=== PATIENT | female | born 1990 | race Two or more races ===

== ENCOUNTER 2024-06-14 13:43 | Emergency (ER) | payer MEDICAID, SELFPAY ==
[2024-06-14 14:05] VITALS: BP 118/81; PULSE 83; RESP 16; TEMP 37.1; O2SAT 98; BMI 34.5
--- NOTE | 2024-06-14 14:12 | EDNOTE_ITS ---
ED Skin Abcess FB-RME/HPI General Chief complaint: Skin/Abscess/Foreign Body Stated complaint: c section 05-30-24. wound opened up, foul leaking Time Seen by Provider: 06/14/24 13:48 Arrival date/time: 06/14/24 13:43 34-year-old female presents emergency department today stating she had a C- section 05/30 and quit [facility] patient reports foul odor from the incision site Limitations: no limitations Related Data Previous Rx's ?Medication ?Instructions ?Recorded Sulfamethoxazole/Trimethoprim DS * 1 tab PO BID Infection #20 tabs 03/01/15 (BACTRIM DS *) clindamycin HCl 300 mg capsule 300 mg PO TID 7 days #21 caps 06/14/24 Allergies Allergy/AdvReac Type Severity Reaction Status Date / Time ibuprofen Allergy Severe EYES SWELL Unverified 03/01/15 02:23 SHUT Penicillins Allergy Intermediate HIVES Unverified 03/01/15 02:23 scopolamine Allergy Intermediate twitching Verified 06/14/24 13:47 Review of Systems Review of Systems Systems Reviewed: All systems reviewed, normal except as documented Constitutional Constitutional: Reports system reviewed and no additional complaints, except as documented, Denies fatigue, Denies fever(s) and Denies headache(s) Eyes Eyes: Reports system reviewed and no additional complaints, except as documented ENT Ears, Nose, Mouth, and Throat: Reports system reviewed and no additional complaints, except as documented, Denies dizziness and Denies headache(s) Cardiovascular Cardiovascular: Reports system reviewed and no additional complaints, except as documented, Denies chest pain, Denies dyspnea and Denies dyspnea on exertion Respiratory Respiratory: Reports system reviewed and no additional complaints, except as documented, Denies chest congestion, Denies cough, Denies dyspnea and Denies dyspnea on exertion Gastrointestinal Gastrointestinal: Reports system reviewed and no additional complaints, except as documented, Denies abdominal pain, Denies nausea and Denies vomiting Genitourinary Genitourinary: Reports system reviewed and no additional complaints, except as documented, Denies flank pain, Denies hematuria and Denies pelvic pain Musculoskeletal Musculoskeletal: Reports system reviewed and no additional complaints, except as documented, Denies abnormal gait, Denies numbness, Denies stiffness and Denies tingling Integumentary/Breasts Skin/Breast: Reports system reviewed and no additional complaints, except as documented and Reports wounds ( minor wound dehiscence) Neurologic Neurologic: Reports system reviewed and no additional complaints, except as documented, Denies abnormal gait, Denies dizziness, Denies headache(s), Denies numbness and Denies tingling Psychiatric Psychiatric: Reports system reviewed and no additional complaints, except as documented and Denies anxiety Endocrine Endocrine: Denies fatigue Past Medical History Past Medical History NEUROLOGIC: Negative Neurological Disorders CARDIAC: Negative Cardiac Disorders ED Exam General Limitations: Present no limitations General appearance: Present alert and in no apparent distress Head Head exam: Present atraumatic Eye Eye exam: Present normal appearance, PERRL and EOMI ENT ENT exam: Present normal exam, normal oropharynx and mucous membranes moist Neck Neck exam: Present normal inspection, full ROM and trachea midline Chest Chest inspection: Present normal inspection and symmetric chest wall rise Respiratory Respiratory exam: Present normal lung sounds bilaterally Cardiovascular Cardiovascular exam: Present regular rate, normal rhythm and normal heart sounds Abdominal Exam Abdominal exam: Present soft, normal bowel sounds and other ( minor wound dehiscence); Absent distention or tenderness Extremities Exam Extremities exam: Present normal inspection and full ROM Back Exam Back exam: Present normal inspection and full ROM Neurological Exam Neurological exam: Present alert, oriented X3 and CN II-XII intact Psychiatric Psychiatric exam: Present normal affect and normal mood Skin Skin exam: Present warm, dry, intact and normal color Course Quality Measures none Vital Signs Vital signs: Vital Signs Temperature 98.8 F 06/14/24 14:05 Pulse Rate 83 06/14/24 14:05 Respiratory Rate 16 06/14/24 14:05 Blood Pressure 118/81 06/14/24 14:05 Pulse Oximetry (%) 98 06/14/24 14:05 Oxygen Delivery Method Room Air 06/14/24 14:05 O2 saturation 98% room air within normal limits Skin / Abscess / Foreign Body MDM Narrative MDM Narrative:: 34-year-old female presents emergency department today stating she had a C- section 05/30 and quit [facility] patient reports foul odor from the incision site Patient reports no fever nausea or vomiting no weakness On exam patient does not have any definite evidence of abscess or cellulitis at this time As patient reports foul odor and discharge patient be given a course of antibiotics Patient reports that she is a follow-up with her [employer]BER[employer] SALES REPRESENTATIVE scheduled I explained to the patient if her symptoms persist or worsen I would like her to return for further evaluation patient states understanding Patient data External records reviewed:: [facility] previous records Clinical information provided by:: patient Social determinants that could affect healthcare access:: none Patient has the following chronic illnesses:: none How is presenting disease/condition affected by chronic disease/condition?: no chronic disease Evaluation data The following diagnostics were reviewed and interpreted by me:: other (specify) (N/A) Lab and/or radiology exams considered but not ordered:: Consider not ordered Interpretation Summary: N/A Medications / Prescriptions Medications or Prescriptions considered but not ordered:: Given Medication administrations:: Given Consultations Consultation(s) initiated? (list below): No Diagnosis Skin/Abscess Differential Diagnosis: abscess of skin or subcutaneous tissue, cellulitis and other ( wound complication) Most likely diagnosis given after review of the tests above:: wound complication Admission Indicated Admission indicated?: not indicated Admission Request Was there a request for admission?: No Disposition Plan Disposition Plan: Discharge Discharge Attestation Discharge Attestation: The patient and all family members were given an opportunity to ask questions and understood the discharge instructions. Discharge instructions specifically effects, indications for sooner follow up or return to the emergency department, and the expected course of current diagnosis. Patient condition: Stable Discharge Plan Plan Patient Disposition: HOME (Self Care) Disposition Comment: Stable Prescriptions/Referrals Prescriptions/Med Rec: New clindamycin HCl 300 mg capsule 300 mg PO TID 7 Days Qty: 21 0RF No Action Sulfamethoxazole/Trimethoprim DS * (BACTRIM DS *) 1 TAB tablet 1 tab PO BID Qty: 20 0RF Problem List Clinical Impression: section wound complication Patient/Caregiver Discharge Instructions Additional Instructions: Please follow up with your [employer]BER[employer] SALES REPRESENTATIVE on Sunday as discussed for worsening symptoms return immediately Print Language: Salvadorean Stand Alone Forms: Latoya Award Info., Patient Portal Info Letter MD Attestation Attestation The patient was seen by the midlevel practitioner. I, the co-signing physician, was present during the entire ER visit. While I did not physically examine the patient, I was available for consultation as needed.
== END 2024-06-14 14:17 | disposition home or self-care (01) ==
LOC: SERX 14:19
PROVIDERS: Emergency Provider Emergency Medicine; PCP Family Medicine
DX: O90.0 Disruption of cesarean delivery wound (principal)
CPT/HCPCS: 99281